=== PATIENT | male | born 1995 | race Caucasian/White ===

== ENCOUNTER 2018-04-02 16:13 | Emergency (ER) | payer OTHER ==
[2018-04-02 17:03] LABS: BEDSIDE GLUCOSE 80 MG/DL (70-105)
[2018-04-03 12:26] LABS: BEDSIDE GLUCOSE 65 MG/DL (70-105)
== END 2018-04-02 17:30 | disposition left against medical advice (07) ==
LOC: M ED 16:13
DX: E11.649 Type 2 diabetes mellitus with hypoglycemia without coma (principal); Z79.4 Long term (current) use of insulin
CPT/HCPCS: 99284